=== PATIENT | male | born 1960 | race Two or more races ===

== ENCOUNTER → 2024-06-10 | Outpatient (CLI) | payer BC, SELFPAY ==
[2024-06-10 08:14] LABS: Collection Type, Urine Clean Catch
[2024-06-10 08:36] LABS: Bilirubin,Urine Negative (Negative); Blood,Urine Negative (Negative); Clarity,Urine Clear (Clear/Hazy); Color,Urine Lt-Yellow (Lt Yel-Yel); Culture Indicated,Urine Not Indicated; Glucose, Urine Negative (Negative); Ketones,Urine Negative (Negative); Leukocyte Esterase,Urine Positive (Negative); Nitrite,Urine Negative (Negative); Protein,Urine Negative (Neg - Trace); RBC,Urine 3 /hpf (0-3); Specific Gravity,Urine 1.007 (1.001-1.035); Squamous Epithelial Cell,Urine 1 /hpf (0-5); Urobilinogen,Urine Negative mg/dL (0.0-1.0); WBC,Urine 2 /hpf (0-5)
[2024-06-10 08:40] LABS: Basophils # (Auto) 0.1 Thou/mm3 (0.0-0.2); Basophils % (Auto) 1 % (0-2.5); Eosinophils # (Auto) 0.2 Thou/mm3 (0.0-0.5); Eosinophils % (Auto) 3 % (0-10); Hematocrit 56.5 % (41.0-53.0); Immature Granulocytes % (Auto) 0 % (0-0); Immature Granulocytes Auto 0.01 Thou/mm3 (0.00-0.00); Lymphocytes % (Auto) 29 % (10-50); Mean Corpuscular HGB Conc 36.1 g/dl (31.0-37.0); Mean Corpuscular Hemoglobin 31.6 pg (25.0-35.0); Mean Corpuscular Volume 88 fL (80-100); Monocytes # (Auto) 0.7 Thou/mm3 (0.0-0.8); Monocytes % (Auto) 10 % (0-12); Neutrophils # (Auto) 3.9 Thou/mm3 (1.8-7.7); Neutrophils % (Auto) 56 % (37-80); Nucleated Red Blood Cell % 0 /100 WBC (0); Platelet Count 209 Thou/mm3 (140-440); RDW Standard Deviation 38.7 fL (35.1-43.9); Red Blood Count 6.45 Miln/mm3 (4.50-5.90); White Blood Count 6.9 Thou/mm3 (3.8-10.6)
[2024-06-10 08:45] LABS: Glucose Estimated Average 171 mg/dL (80-131); Hemoglobin A1C 7.6 % Hgb (4.8-6.0)
[2024-06-10 08:49] LABS: Creatinine MALB Rnd Ur 64 mg/dL (30-125); Microalbumin Creat Ratio 11 mg/gCrea (<30); Microalbumin, Random Urine 7 mg/L (0-300)
[2024-06-10 09:00] LABS: Hemoglobin 20.4 g/dL (13.5-16.0)
[2024-06-10 09:12] LABS: Alanine Aminotransferase 42 U/L (10-49); Albumin/Globulin Ratio 1.7 (1.2-2.2); Alkaline Phosphatase 72 U/L (46-116); Anion Gap 3 (7-16); Aspartate Amino Transferase 30 U/L (0-34); BUN/Creatinine Ratio 11 Ratio (12-20); Bilirubin,Total 0.8 mg/dL (0.3-1.2); Blood Urea Nitrogen 16 mg/dL (9-23); Calcium 10.1 mg/dL (8.3-10.6); Calcium (Corrected) 10.1 mg/dL (8.5-10.1); Carbon Dioxide 31.1 mMol/L (20.0-31.0); Cardiac Risk Estimate 3.9 RATIO (4.0-6.7); Chloride 102 mMol/L (98-107); Cholesterol 138 mg/dL (132-200); Creatinine (Component) 1.4 mg/dL (0.6-1.3); Glucose 140 mg/dL (74-106); HDL Cholesterol 35 mg/dL (40-60); LDL Cholesterol,Calculated 65 mg/dL (0-130); Osmolality,Calculated 275 (275-295); Potassium 4.8 mMol/L (3.4-5.1); Sodium 136 mMol/L (136-145); Triglycerides 191 mg/dL (30-150); eGFR 56 See Note
[2024-06-10 09:36] LABS: Hepatitis B Surface Ab NonReact(Not Immune) (Immune); Hepatitis B Surface Antigen Non Reactive (Non React); Hepatitis C Antibody Non Reactive (Non React)
[2024-06-14 07:03] LABS: Hepatitis B Core Ab,Total* NONREACTIVE
== END | disposition home or self-care (01) ==
PROVIDERS: PCP Family Medicine; Referring Provider Nurse Practitioner Family; Visit Provider Nurse Practitioner Family
DX: E11.65 Type 2 diabetes mellitus with hyperglycemia (principal); E78.1 Pure hyperglyceridemia; Z11.59 Encounter for screening for other viral diseases; Z76.89 Persons encountering health services in other specified circumstances
CPT/HCPCS: 36415; 80053; 80061; 81001; 82043; 82570; 83036; 85025; 86704; 86706; 86803; 87340

== ENCOUNTER → 2024-08-12 | Outpatient (CLI) | payer BC, SELFPAY ==
[2024-08-12 08:31] LABS: Basophils # (Auto) 0.1 Thou/mm3 (0.0-0.2); Basophils % (Auto) 1 % (0-2.5); Eosinophils # (Auto) 0.2 Thou/mm3 (0.0-0.5); Eosinophils % (Auto) 3 % (0-10); Hematocrit 42.4 % (41.0-53.0); Hemoglobin 15.1 g/dL (13.5-16.0); Immature Granulocytes % (Auto) 0 % (0-0); Immature Granulocytes Auto 0.02 Thou/mm3 (0.00-0.00); Lymphocytes % (Auto) 29 % (10-50); Mean Corpuscular HGB Conc 35.6 g/dl (31.0-37.0); Mean Corpuscular Hemoglobin 31.5 pg (25.0-35.0); Mean Corpuscular Volume 89 fL (80-100); Monocytes # (Auto) 0.6 Thou/mm3 (0.0-0.8); Monocytes % (Auto) 9 % (0-12); Neutrophils # (Auto) 3.8 Thou/mm3 (1.8-7.7); Neutrophils % (Auto) 57 % (37-80); Nucleated Red Blood Cell % 0 /100 WBC (0); Platelet Count 223 Thou/mm3 (140-440); Red Blood Count 4.79 Miln/mm3 (4.50-5.90); White Blood Count 6.7 Thou/mm3 (3.8-10.6)
[2024-08-12 08:47] LABS: Albumin, Serum 4.2 gm/dL (3.4-4.8); Anion Gap 6 (7-16); BUN/Creatinine Ratio 15 Ratio (12-20); Blood Urea Nitrogen 18 mg/dL (9-23); Calcium 9.5 mg/dL (8.3-10.6); Calcium (Corrected) 9.5 mg/dL (8.5-10.1); Carbon Dioxide 29.9 mMol/L (20.0-31.0); Chloride 105 mMol/L (98-107); Creatinine (Component) 1.2 mg/dL (0.6-1.3); Glucose 193 mg/dL (74-106); Osmolality,Calculated 288 (275-295); Phosphorous 2.4 mg/dL (2.4-5.1); Potassium 4.2 mMol/L (3.4-5.1); Sodium 141 mMol/L (136-145); eGFR > 60 See Note
== END | disposition home or self-care (01) ==
LOC: COPL 07:47
PROVIDERS: PCP Family Medicine; Referring Provider Nurse Practitioner Family; Visit Provider Nurse Practitioner Family
DX: D75.1 Secondary polycythemia (principal); R94.4 Abnormal results of kidney function studies
CPT/HCPCS: 36415; 80069; 85025

== ENCOUNTER → 2024-10-12 | Outpatient (CLI) | payer BC, SELFPAY ==
[2024-10-12 08:47] LABS: Glucose Estimated Average 137 mg/dL (80-131); Hemoglobin A1C 6.4 % Hgb (4.8-6.0)
[2024-10-12 08:56] LABS: Cardiac Risk Estimate 4.1 RATIO (4.0-6.7); Cholesterol 131 mg/dL (132-200); HDL Cholesterol 32 mg/dL (40-60); LDL Cholesterol,Calculated 34 mg/dL (0-130); Magnesium 1.8 mg/dL (1.6-2.6); Phosphorous 2.9 mg/dL (2.4-5.1); Triglycerides 323 mg/dL (30-150); Uric Acid 6.3 mg/dL (3.7-9.2)
== END | disposition home or self-care (01) ==
LOC: COPL 08:06
PROVIDERS: PCP Family Medicine; Referring Provider Nurse Practitioner Family; Visit Provider Nurse Practitioner Family
DX: E11.65 Type 2 diabetes mellitus with hyperglycemia (principal); E78.5 Hyperlipidemia, unspecified; N18.2 Chronic kidney disease, stage 2 (mild); E11.22 Type 2 diabetes mellitus with diabetic chronic kidney disease
CPT/HCPCS: 36415; 80061; 83036; 83735; 84100; 84550

== ENCOUNTER → 2025-01-11 | Outpatient (CLI) | payer BC, SELFPAY ==
[2025-01-11 07:43] LABS: Misc Send Out* See Sep Rpt
[2025-01-11 08:18] LABS: Collection Type, Urine Clean Catch; Squamous Epithelial Cell,Urine 0 /hpf (0-5)
[2025-01-11 08:42] LABS: Basophils # (Auto) 0.1 Thou/mm3 (0.0-0.2); Basophils % (Auto) 1 % (0-2.5); Eosinophils # (Auto) 0.3 Thou/mm3 (0.0-0.5); Eosinophils % (Auto) 4 % (0-10); Hematocrit 46.3 % (41.0-53.0); Hemoglobin 16.7 g/dL (13.5-16.0); Immature Granulocytes Auto 0.03 Thou/mm3 (0.00-0.00); Immature Reticulocyte Fraction 16.7 % (2.3-13.4); Lymphocytes # (Auto) 1.9 Thou/mm3 (1.0-4.8); Lymphocytes % (Auto) 27 % (10-50); Mean Corpuscular HGB Conc 36.1 g/dl (31.0-37.0); Mean Corpuscular Hemoglobin 32.7 pg (25.0-35.0); Mean Corpuscular Volume 91 fL (80-100); Monocytes # (Auto) 0.6 Thou/mm3 (0.0-0.8); Monocytes % (Auto) 8 % (0-12); Neutrophils # (Auto) 4.4 Thou/mm3 (1.8-7.7); Neutrophils % (Auto) 60 % (37-80); Nucleated Red Blood Cell # 0.00 Thou/mm3 (0.00-0.00); Nucleated Red Blood Cell % 0 /100 WBC (0); Platelet Count 185 Thou/mm3 (140-440); RDW Standard Deviation 40.9 fL (35.1-43.9); Red Blood Count 5.11 Miln/mm3 (4.50-5.90); Reticulocyte % (Auto) 2.5 % (0.5-1.5); Reticulocyte Absolute Auto 127.8 Biln/L (25.0-75.0); Reticulocyte Hgb Content 36.8 pg (28.0-35.0); White Blood Count 7.3 Thou/mm3 (3.8-10.6)
[2025-01-11 08:52] LABS: Glucose Estimated Average 160 mg/dL (80-131); Hemoglobin A1C 7.2 % Hgb (4.8-6.0)
[2025-01-11 09:00] LABS: Parathyroid Hormone Intact 65.3 pg/ml (18.5-88.0)
[2025-01-11 09:01] LABS: Vitamin D 25 Hydroxy Total 48.2 ng/mL (7.3-40.2)
[2025-01-11 09:08] LABS: Alanine Aminotransferase 53 U/L (10-49); Albumin, Serum 4.4 gm/dL (3.4-4.8); Anion Gap 9 (7-16); Aspartate Amino Transferase 36 U/L (0-34); BUN/Creatinine Ratio 11 Ratio (12-20); Blood Urea Nitrogen 13 mg/dL (9-23); Calcium 9.4 mg/dL (8.3-10.6); Calcium (Corrected) 9.4 mg/dL (8.5-10.1); Carbon Dioxide 28.7 mMol/L (20.0-31.0); Cardiac Risk Estimate 4.1 RATIO (4.0-6.7); Chloride 104 mMol/L (98-107); Cholesterol 139 mg/dL (132-200); Creatinine (Component) 1.2 mg/dL (0.6-1.3); Glucose 175 mg/dL (74-106); HDL Cholesterol 34 mg/dL (40-60); LDL Cholesterol,Calculated 52 mg/dL (0-130); Magnesium 1.6 mg/dL (1.6-2.6); Osmolality,Calculated 287 (275-295); Phosphorous 2.9 mg/dL (2.4-5.1); Potassium 4.3 mMol/L (3.4-5.1); Sodium 142 mMol/L (136-145); Triglycerides 266 mg/dL (30-150); eGFR > 60 See Note
[2025-01-11 09:16] LABS: Creatinine,Random Urine 209 mg/dL (30-125); Protein Total, Random Urine 12 mg/dL (1-14)
[2025-01-11 09:22] LABS: Bacteria,Urine Rare; Bilirubin,Urine Negative (Negative); Blood,Urine Trace (Negative); Clarity,Urine Clear (Clear/Hazy); Color,Urine Yellow (Lt Yel-Yel); Culture Indicated,Urine Not Indicated; Glucose, Urine 1+ (Negative); Ketones,Urine Negative (Negative); Leukocyte Esterase,Urine Negative (Negative); Nitrite,Urine Negative (Negative); PH,Urine 5.5 (5.0-7.0); Protein,Urine Negative (Neg - Trace); RBC,Urine 1 /hpf (0-3); Specific Gravity,Urine 1.024 (1.001-1.035); Urobilinogen,Urine Negative mg/dL (0.0-1.0); WBC,Urine 3 /hpf (0-5)
[2025-01-14 22:05] LABS: Albumin 4.2 g/dL (3.8-4.8); Alpha-1-Globulin 0.2 g/dL (0.2-0.3); Alpha-2-Globulin 0.7 g/dL (0.5-0.9); Beta-1-Globulin 0.4 g/dL (0.4-0.6); Beta-2-globulin 0.4 g/dL (0.2-0.5); Gamma Globulin 1.4 g/dL (0.8-1.7); Kappa Light Chain, Free 25.1 mg/L (3.3-19.4); Lambda Light Chain, Free 16.8 mg/L (5.7-26.3)
[2025-01-17 08:07] LABS: Kappa/Lambda, Free Ratio 1.49 (0.26-1.65); Protein, total, serum 7.4 g/dL (6.1-8.1)
== END | disposition home or self-care (01) ==
LOC: COPL 07:22
PROVIDERS: PCP Family Medicine; Referring Provider Internal Medicine Nephrology; Visit Provider Nurse Practitioner Family
DX: I12.9 Hypertensive chronic kidney disease with stage 1 through stage 4 chronic kidney disease, or unspecified chronic kidney disease (principal); N18.2 Chronic kidney disease, stage 2 (mild); D63.1 Anemia in chronic kidney disease; N39.0 Urinary tract infection, site not specified; E78.5 Hyperlipidemia, unspecified; E83.42 Hypomagnesemia
CPT/HCPCS: 36415; 80061; 80069; 81001; 82306; 82570; 83036; 83521; 83735; 83970; 84155; 84156; 84165; 84450; 84460; 85025; 85046; 86334

== ENCOUNTER 2025-04-20 07:55 | Day surgery (SDC) | payer BC, SELFPAY ==
[2025-04-19 11:27] VITALS: BMI 31.6
[2025-04-20] VITALS (10 sets, daily range): BP systolic 121–151; BP diastolic 74–92; PULSE 63–76; RESP 12–20; TEMP 36.7; O2SAT 95–100; BMI 31.4
[2025-04-20] MEDS: SODIUM CHLORIDE 0.9% 500 ML 500 ML 20 ML IV (09:30)
[2025-04-20] MEDS: MIDAZOLAM INJ 1 MG/ML VIAL 2 ML (ASD USE ONLY) 2 MG IVP (09:37)
[2025-04-20] MEDS: fentaNYL CIT INJ 50 mCg/ML AMP 2ML (ASD USE ONLY) IVP (09:37)
== END 2025-04-20 10:40 | disposition home or self-care (01) ==
PROVIDERS: PCP Nurse Practitioner Family; Referring Provider Specialist; Visit Provider Specialist
PROC: 0DBE8ZX Excision of Large Intestine, Via Natural or Artificial Opening Endoscopic, Diagnostic (ICD-10-PCS; CPT 45380; principal; 2025-04-20 09:00)
DX: Z12.11 Encounter for screening for malignant neoplasm of colon (principal); D12.3 Benign neoplasm of transverse colon; K64.1 Second degree hemorrhoids; K57.30 Diverticulosis of large intestine without perforation or abscess without bleeding
CPT/HCPCS: 45380; A4649; J1200; J2250; J3010; J7999